=== PATIENT | female | born 1970 | race Caucasian/White ===

== ENCOUNTER → 2017-11-13 | Day surgery (SDC) | payer OTHER ==
[~2017-11-13] MED LIST: ACETAMINOPHEN 1000 MG/100 ML 100 ML IV ONE; BUPIVACAINE HCL PF 0.25% 30 ML VIAL ONE; KETOROLAC TROMETHAMINE 30 MG/ML (IVP) VIAL IV PUSH ONE; LACTATED RINGER'S 1000 ML INJ 1,000 ML ONE; LIDOCAINE 1%/EPINEPHrine 1:200,000 PF SOLN 30 ML VIAL ONE; MIDAZOLAM HCL 2 MG/2 ML VIAL ONE; ONDANSETRON HCL 4 MG/2 ML VIAL IV PUSH ONE; PROPOFOL 200 MG/20 ML AMP IV ONE; ceFAZolin 2 GM PREMIX 50 ML ONE
--- NOTE | 2017-11-13 12:35 | PD.OP ---
cc: Morteza Menendez MD Operative Report Date of Surgery: November 13, 2017 Preoperative Diagnosis: Left breast microcalcifications Postoperative Diagnosis: Same Procedure: Left breast needle localized lumpectomy, hidden scar technique Anesthesia: General Surgeon: Morteza Menendez Wet Inspector Optical Glass(s): Malgorzata Operation and Findings: Indications for procedure This is a pleasant 46-year-old adopted woman who is noted to have microcalcifications the left breast on mammography. Stereotactic biopsy was unsuccessful due to location. Plans are made for needle localized lumpectomy. Intraoperative finding A few microcalcifications seen on initial specimen mammogram. Additional margins superior medial lateral removed in a few additional microcalcifications seen there. Further removal of breast tissue was decided not to be warranted other than a small additional piece. All specimen sent for permanent section. Estimated blood loss less than 15 mL. Description of procedure in detail Patient was identified as Vaishnavi Talavera taken to the operating room placed a supine position following needle localization of the left breast. Sequential compression device were placed on bilateral lower extremities. Following induction of adequate general anesthesia with a laryngeal mask the left breast was prepped and draped in usual sterile fashion with Betadine. A timeout procedure was performed. Following completion timeout procedure proposed a lateral periareolar incision was made with a marking pen. Local anesthetic was infiltrated generously around the proposed incision site and proposed dissection plane. Incision was carried out with a scalpel and hemostasis control with the photon blade. Dissection continued posteriorly through very large amount of breast tissue down to localization needle tip. Breast tissue was from surrounding tissues including a generous portion of breast tissue anterior to the localization needle tip. Localization needle was discovered more proximally along its course, divided within the breast tissue, and the breast tissue surrounding the localization needle tip completely excised from surrounding tissues marked with a short stitch superior anterior and a long stitch lateral posterior and sent for specimen imaging. The above- mentioned results from specimen imaging resulted in removal of additional breast tissue using the photon blade separately excising the superior anterior margin a medial margin and the lateral margin. These were sent additionally for specimen imaging and again only a few microcalcifications were seen. Was determined at this point no additional breast tissue would be removed for specimen imaging. A small tongue of breast tissue was excised and sent as additional breast specimen. Wound was irrigated copiously with saline. Bleeding points were controlled electrocautery. A 10 cc of local anesthetic was placed within the lumpectomy cavity. 3-0 Vicryl was used in the deep dermis and subcutaneous tissue and 4-0 Monocryl in subcuticular position the skin. Dermabond was placed. 4 x 4 and Tegaderm were placed over the gauze. The patient tolerated the procedure without apparent complication. Sponge needle and instrument counts were correct at the end of the case. The patient was transported to PACU in stable condition. Morteza Menendez MD November 13, 2017 12:35
== END | disposition home or self-care (01) ==
LOC: ESDC 08:30
PROVIDERS: ATTEND Surgery Trauma Surgery
DX: R92.0 Mammographic microcalcification found on diagnostic imaging of breast (principal)
CPT/HCPCS: 00400; 19125; 88307; J0131; J0690; J1885; J2250; J2405; J3010; J7120